=== PATIENT | female | born 1970 | race Caucasian/White ===

== ENCOUNTER 2016-04-21 05:25 | Inpatient (IN) | payer MEDICAID, OTHER ==
[~2016-04-21] VITALS: Ht 149.9 cm; Wt 67.6 kg
[2016-04-21] VITALS (7 sets, daily range): BP systolic 108–147; BP diastolic 66–79
[2016-04-21] MEDS ORDERED: KETOROLAC 30 MG/ML VIAL IVP ONE (07:26)
[2016-04-21] MEDS ORDERED: SEVOFLURANE 250 ML BTL INH ONE ×2 (07:26)
[2016-04-21] MEDS ORDERED: PROPOFOL 200 MG/20 ML VIAL IV ONE (07:26)
[2016-04-21] MEDS ORDERED: LIDOCAINE 1% 500 MG/50 ML VIAL INJ ONE (07:26)
[2016-04-21] MEDS ORDERED: INSULIN ASPART SLIDING SCALE 100 UNITS/ML VIAL SUBQ ONE (07:35)
[2016-04-21] MEDS ORDERED: fentaNYL 0.05 MG/ML VIAL ONE (07:36)
[2016-04-21] MEDS ORDERED: MIDAZOLAM 2 MG/2 ML VIAL ONE (07:37)
[2016-04-21] MEDS ORDERED: BUPIVACAINE-MPF/EPI 0.25% 30 ML VIAL INJ ONE (08:01)
[2016-04-21] MEDS ORDERED: ONDANSETRON 4 MG/2 ML VIAL IVP PRN (08:05)
[2016-04-21] MEDS ORDERED: HYDROmorphone 1 MG/ML AMP IVP PRN ×2 (08:05→12:00)
[2016-04-21] MEDS ORDERED: INSULIN ASPART SLIDING SCALE 100 UNITS/ML VIAL SUBQ SCH (08:30)
[2016-04-21] MEDS ORDERED: BLOOD GLUCOSE MONITORING 1 DEV DEV FS SCH (08:30)
[2016-04-21] MEDS ORDERED: MORPHINE SULFATE 2 MG/ML SYR IVP PRN (09:25)
[2016-04-21] MEDS ORDERED: HYDROcodone/APAP 5/325 MG 1 TAB TAB PO PRN (09:25)
[2016-04-21] MEDS ORDERED: MORPHINE SULFATE 4 MG/ML SYR IV PRN (09:25)
[2016-04-21] MEDS: HYDROmorphone PFS 2 MG/ML SYR ONE ×2 (09:30→09:40)
--- NOTE | 2016-04-21 10:20 | NUR ---
ADMITTED FROM OR VIA GURNEY. AWAKE, ALERT, AND ORIENTED X3. SPEECH CLEAR. NO C/O PAIN. NO SOB, NOTED. SURGICAL DRESSING ON LEFT BREAST DRY AND INTACT WITH ETHAN DRAIN DRAINING WELL. KEEP COMFORTABLE ON BED. EXPLAINED DIAGNOSIS, PLAN OF CARE, POST-OP CARE, PAIN MANAGEMENT TEACHING, DIET, USE OF CALL LIGHT/BED/TV/BATHROOM. VERBALIZED UNDERSTANDING. CALL LIGHT WITHIN REACH. ADMISSION ASSESSMENT DONE. REFUSED AND FLU VACCINE.
--- NOTE | 2016-04-21 11:00 | NUR ---
Patient's Plan of Care was discussed and reviewed with BODY STYLIST: GUS
[2016-04-21] MEDS ORDERED: ONDANSETRON 4 MG/2 ML VIAL IV PRN (13:00)
[2016-04-21] MEDS: NACL 0.9% 1,000 ML IV SCH ×2 (13:40→23:43)
--- NOTE | 2016-04-21 14:05 | NUR ---
WENT TO BATHROOM WITHOUT ASSISTANCE. TOLERATED WELL. NO C/O NAUSEA. NO C/O PAIN.
--- NOTE | 2016-04-21 19:15 | NUR ---
BEDSIDE REPORT GIVEN TO DAVID LIN. IVF INFUSING WELL. IN STABLE CONDITION.
--- NOTE | 2016-04-21 19:20 | NUR ---
RECEIVED FROM AM RN IN BED AWAKE AND AMBULATING TOWARDS THE RESTROOM. IVF SITE TO LAC INTACT AND NO INFILTRATION NOTED. NO SOB. DENIES ANY PAIN AT THIS TIME. S/P LEFT BREAST MASTECTOMY. DRESSING INTACT AND NO BLEEDING. WITH ETHAN TO LEFT SIDE DRAINING SEROUS SANGUINOUS OUTPUT. CALL LIGHT WITH IN REACH. CARE PLANS FOR THE NIGHT DISCUSSED WITH HER AND FAMILY MEMBERS. AFEBRILE. VERBALIZES WELL.
--- NOTE | 2016-04-21 20:28 | NUR ---
CHECKED ON PT. AND DENIES ANY PAIN. ENCOURAGED TO CALL FOR ANY HELP SHE MAY NEED OR IF IN PAIN."OK". ALERT AND ORIENTED.
--- NOTE | 2016-04-21 21:52 | NUR ---
MEDICATED WITH DILAUDID IVP 1 MG. REQUESTED RT COMPLAINED OF PAIN TO S/P MASTECTOMY SITE. A/O X 4. ABLE TO USE CALL LIGHT FOR HELP. ETHAN WITH LITTLE OUTPUT. NO BLEEDING TO DRESSING . ABLE TO VERBALIZE NEEDS WELL.
[2016-04-22 00:25] VITALS: BP 145/87
--- NOTE | 2016-04-22 00:29 | NUR ---
SPOUSE IN HERE VISITING. STILL AWAKE AND TALKING. NO COMPLAINTS DONE.
--- NOTE | 2016-04-22 03:36 | NUR ---
SPOUSE LEFT AND AT THIS TIME SLEEPING . NO RESTLESSNESS. CALL LIGHT WITH IN REACH.
--- NOTE | 2016-04-22 06:16 | NUR ---
SLEPT WELL AFTER PT'.S SPOUSE LEFT. WAKES UP EASILY. DENIES ANY PAIN AT THIS TIME. ETHAN OUT PUT 20 ML OF SEROUS SANGUINOUS IN COLOR .
--- NOTE | 2016-04-22 07:22 | NUR ---
RECEIVED REPORT FROM CREDIT REPORTER NURSE. PT IS AAOX4, DENIES PAIN/DISCOMFORT AT THIS TIME. IV IS PATENT AND INTACT. DRESSING IS DRY AND INTACT, ETHAN DRAIN INTACT AND FLOWING VIA GRAVITY. VITALS STABLE. WILL CONTINUE TO MONITOR.
--- NOTE | 2016-04-22 07:48 | NUR ---
PATIENT HAS BEEN SCREENED AND CATEGORIZED LOW NUTRITION RISK. PATIENT WILL BE SEEN WITHIN 7 DAYS OF ADMISSION. 04/28/[address]
[2016-04-22 08:00] VITALS: BP 122/76
--- NOTE | 2016-04-22 09:22 | NUR ---
PT AWAKE WITH BREAKFAST AT BEDSIDE, ALL NEEDS MET AT THIS TIME.
--- NOTE | 2016-04-22 12:21 | NUR ---
VS REMAIN STABLE.
--- NOTE | 2016-04-22 15:33 | NUR ---
PT RESTING COMFORTABLY. ALL NEEDS MET AT THIS TIME.
[2016-04-22 16:00] VITALS: BP 133/85
--- NOTE | 2016-04-22 17:55 | NUR ---
D/C PAPER WORK SIGNED AND EXPLAINED. PT VERBALIZED UNDERSTANDING. PRESCRIPTION IN PT'S POSSESSION. IV REMOVED WITH CANNULA INTACT. WRISTBAND REMOVED. PT DECLINED FLU VACCINE AND STS SHE WILL INQUIRE AT PCP'S OFFICE.
--- NOTE | 2016-04-22 18:21 | NUR ---
20 ML REMOVED FROM ETHAN DRAIN.
--- NOTE | 2016-04-22 18:42 | NUR ---
PT WAS PICKED UP BY FAMILY MEMBER AND WHEELED OUT OF HOSPITAL IN STABLE CONDITION.
== END 2016-04-22 18:15 | disposition home or self-care (01) | DRG 361 ==
LOC: MDS 05:25 → MMU 06:03 → MDS 09:27 → MTU 09:27
PROVIDERS: ADMIT Surgery; ATTEND Surgery
PROC: 0XB50ZZ Excision of Left Axilla, Open Approach (ICD-10-PCS; 2016-04-21)
PROC: 0KBJ0ZZ Excision of Left Thorax Muscle, Open Approach (ICD-10-PCS; 2016-04-21)
PROC: 07B60ZX Excision of Left Axillary Lymphatic, Open Approach, Diagnostic (ICD-10-PCS; 2016-04-21)
PROC: 0HBU0ZX Excision of Left Breast, Open Approach, Diagnostic (ICD-10-PCS; principal; 2016-04-21 07:30)
DX: C50.612 Malignant neoplasm of axillary tail of left female breast (principal); E11.65 Type 2 diabetes mellitus with hyperglycemia; E66.9 Obesity, unspecified; Z68.30 Body mass index [BMI] 30.0-30.9, adult; Z92.21 Personal history of antineoplastic chemotherapy; Z90.12 Acquired absence of left breast and nipple